=== PATIENT | female | born 1950 | race Hispanic/Latino ===

== ENCOUNTER 2016-12-28 21:25 | Emergency (ER) | payer OTHER ==
[2016-12-28 21:25] VITALS: BMI 29.0
[2016-12-28 21:58] VITALS: BP 128/78; PULSE 74; RESP 14; TEMP 97.8; O2SAT 99
[2016-12-28] MEDS ORDERED: Fluorescein 1 mg Ophthalmic Strip OD ONE (22:30)
--- NOTE | 2016-12-28 22:58 | ED PDOC ---
Arrival/HPI - General Chief Complaint: Eye Problem Time Seen by Provider: 12/28/16 22:09 Historian: Patient - History of Present Illness Narrative History of Present Illness (Text): 12/28/16 22:19 This 66 yo female presents to this ED c/o right eye pain, and FB sensation x ORDERLIES TEACHER. Patient stated she was laying on her bed when symptoms started. Denies vision changes. Denies trauma, floaters, recent travel, [place], or dizziness. Time/Duration: Prior to Arrival Quality: Aching Context: Home Past Medical History - Provider Review Nursing Documentation Reviewed: Yes - Infectious Disease Hx of Infectious Diseases: None - Tetanus Immunization Tetanus Immunization: Unknown - Reproductive Menopause: Yes - Psychiatric Hx Depression: No Hx Emotional Abuse: No Hx Physical Abuse: No Hx Substance Use: No - Surgical History Hx Cholecystectomy: Yes Hx Gastric Bypass Surgery: Yes Hx Tonsillectomy: Yes Hx Tubal Ligation: Yes - Anesthesia Hx Anesthesia: Yes Hx Anesthesia Reactions: No Hx Malignant Hyperthermia: No - Suicidal Assessment Feels Threatened In Home Enviroment: No Family/Social History - Physician Review Nursing Documentation Reviewed: Yes Family/Social History: Other (non-contributory) Smoking Status: Never Smoked Hx Alcohol Use: No Hx Substance Use: No Hx Substance Use Treatment: No Allergies/Home Meds Allergies/Adverse Reactions: Allergies penicillin G Allergy (Verified 12/28/16 22:24) RASH Review of Systems - Review of Systems Constitutional: Normal. absent: Fatigue, Weight Change, Fevers Eyes: Eye Pain, Other (FB sensation). absent: Vision Changes ENT: Normal Respiratory: Normal. absent: SOB, Cough Cardiovascular: Normal. absent: Chest Pain, Palpitations Gastrointestinal: Normal. absent: Abdominal Pain, Nausea, Vomiting Genitourinary Female: Normal Musculoskeletal: Normal Skin: Normal Neurological: Normal Endocrine: Normal Hemo/Lymphatic: Normal Psychiatric: Normal Physical Exam Vital Signs Temp Pulse Resp BP Pulse Ox 12/28/16 21:50 97.8 F 74 14 128/78 99 Temperature: Afebrile Blood Pressure: Normal Pulse: Regular Respiratory Rate: Normal Appearance: Positive for: Well-Appearing, Non-Toxic, Comfortable Pain Distress: None Mental Status: Positive for: Alert and Oriented X 3 - Systems Exam Head: Present: Atraumatic, Normocephalic Pupils: Present: PERRL, Other (no hyphema) Extroacular Muscles: Present: EOMI. No: Entrapment Conjunctiva: Present: Normal, Other (Fluorescine stain was negative. no corneal abrasion, no corneal laceration, no dendritic lesion, no corneal ulcer, no FB, no stye) Ears: Present: Normal, NORMAL TM, Normal Canal. No: Erythema Mouth: Present: Moist Mucous Membranes Neck: Present: Normal Range of Motion. No: Meningeal Signs, Lymphadenopathy Respiratory/Chest: Present: Clear to Auscultation, Good Air Exchange. No: Respiratory Distress, Wheezes, Retracting Cardiovascular: Present: Regular Rate and Rhythm, Normal S1, S2. No: Murmurs Upper Extremity: Present: Normal Inspection, Normal ROM Lower Extremity: Present: Normal Inspection, Normal ROM Neurological: Present: GCS=15, CN II-XII Intact, Speech Normal, Motor Func Grossly Intact, Normal Sensory Function, Normal Cerebellar Funct, Gait Normal, Memory Normal Skin: Present: Warm, Dry, Normal Color. No: Rashes Psychiatric: Present: Alert, Oriented x 3 Medical Decision Making ED Course and Treatment: 12/28/16 23:[address] Luna Cleaning Machine Operator regarding patient complains right eye pain, and FB sensation. He feels it maybe corneal abrasion, not seen with fluorescine stain. He recommended tobramycin Ophthalmic solution, QID on right eye, and also OTC Systane eye drop lubricant. He also recommended patient to call office tomorrow at 9am. Patient symptoms have improved with Tetracaine ophthalmic. Visual acuity was 20 /25 on affected eye, and 20/20 on unaffected eye. Re-evaluation Time: 23:15 Reassessment Condition: Re-examined, Improved - Medication Orders Current Medication Orders: Discontinued Medications Eye Irrigation Solution (Eye Wash) 40 ml OD STAT STA Stop: 12/28/16 23:00 Last Admin: 12/28/16 23:00 Dose: 40 ml Fluorescein Sodium ([id number] A.T.) 2 mg OD ONCE ONE Stop: 12/28/16 22:31 Last Admin: 12/28/16 22:50 Dose: 2 mg Tobramycin Sulfate (Tobrex 0.3% Ophth Soln) 1 drop OD STAT STA Stop: 12/28/16 23:13 Last Admin: 12/28/16 23:33 Dose: 0.3 % Disposition/Present on Arrival - Present on Arrival Any Indicators Present on Arrival: No History of DVT/PE: No History of Uncontrolled Diabetes: No Urinary Catheter: No History of Decub. Ulcer: No History Surgical Site Infection Following: None - Disposition Have Diagnosis and Disposition been Completed?: Yes Diagnosis: Eye pain Disposition: HOME/ ROUTINE Disposition Time: 23:16 Patient Plan: Discharge Condition: GOOD Discharge Instructions (ExitCare): Eye Pain (ED) Additional Instructions: Call Dr. Bonner Office tomorrow at 9am. Let them know that Dr. Luna is aware of your eye pain. Take medication as instructed. Return to emergency if symptoms worsen. Dr. Luna also recommended Systane eye drop lubricant, which can be found a s over the counter medication. Return to emergency if symptoms worsen. Eye drop antibiotic Tobramycin ophthalmic to apply 1 drop 4 times a day for 7 days, wait 10 to 15 minutes between Systane eye drop, and Tobramycin eye drop. Prescriptions: oxyCODONE/Acetaminophen [Percocet 5/325 mg Tab] 1 ea PO Q6H PRN #3 tab PRN Reason: Pain, Severe (8-10) Referrals: Jarrell Mares MD [Primary Care Provider] - Follow up with primary Valente Luna MD [Staff Provider] - Follow up with primary Forms: [employer] ([place])
[2016-12-28] MEDS ORDERED: Ophthalmic Irrigation, Soln OD STA (22:59)
[2016-12-28] MEDS ORDERED: Tobramycin 0.3% OPHT SOLN OD STA (23:12)
== END 2016-12-28 23:22 | disposition home or self-care (01) ==
LOC: ED 21:25
DX: H57.11 Ocular pain, right eye (principal)